=== PATIENT | male | born 1990 | race Native Hawaiian/Other Pacific Islander ===

== ENCOUNTER 2017-08-12 20:29 | Emergency (ER) | payer OTHER ==
[~2017-08-12] VITALS: Ht 172.7 cm; Wt 90.7 kg
== END 2017-08-12 21:38 | disposition home or self-care (01) ==
LOC: ED 20:29
DX: R05 Cough (principal); R51 Headache; R07.89 Other chest pain
CPT/HCPCS: 99281

== ENCOUNTER 2019-08-17 21:59 | Emergency (ER) | payer OTHER ==
[~2019-08-17] VITALS: Ht 172.7 cm; Wt 109.3 kg
[2019-08-17 22:35] LABS: PLATELET COUNT 226 K/uL (142-355)
[2019-08-17 22:45] LABS: POTASSIUM 3.8 mmol/L (3.6-5.2)
[2019-08-17 23:20] VITALS: BP 135/81; TEMP 98.6
== END 2019-08-17 23:22 | disposition home or self-care (01) ==
LOC: ED 21:59
PROVIDERS: Hospitalist
DX: J40 Bronchitis, not specified as acute or chronic (principal); F17.220 Nicotine dependence, chewing tobacco, uncomplicated
CPT/HCPCS: 36415; 80048; 85027; 87502; 87651; 94664; 99283

== ENCOUNTER 2019-10-06 11:40 | Emergency (ER) | payer OTHER ==
[~2019-10-06] VITALS: Ht 172.7 cm; Wt 107.0 kg
[2019-10-06 11:48] VITALS: BP 175/108; TEMP 97.9
== END 2019-10-06 12:43 | disposition home or self-care (01) ==
LOC: ED 11:40
DX: H10.32 Unspecified acute conjunctivitis, left eye (principal)
CPT/HCPCS: 99283

== ENCOUNTER 2020-08-27 11:09 | Emergency (ER) | payer OTHER ==
[~2020-08-27] VITALS: Ht 175.3 cm; Wt 99.8 kg
[2020-08-27 11:37] LABS: PLATELET COUNT 139 K/uL (142-355)
[2020-08-27 11:45] LABS: POTASSIUM 4.1 mmol/L (3.6-5.2)
[2020-08-27 13:20] VITALS: BP 112/70; TEMP 99.5
== END 2020-08-27 13:21 | disposition home or self-care (01) ==
LOC: ED 11:09
PROVIDERS: Family Medicine
DX: J06.9 Acute upper respiratory infection, unspecified (principal); R05 Cough; R73.9 Hyperglycemia, unspecified; E87.1 Hypo-osmolality and hyponatremia; Z20.828 Contact with and (suspected) exposure to other viral communicable diseases
CPT/HCPCS: 80053; 85027; 87502; 87635; 87651; 96372; 99283; J1815; U0003

== ENCOUNTER 2020-10-04 12:33 | Emergency (ER) | payer OTHER ==
[~2020-10-04] VITALS: Ht 175.3 cm; Wt 99.8 kg
[2020-10-04 12:35] VITALS: TEMP 98.1
[2020-10-04 13:16] LABS: PLATELET COUNT 256 K/uL (142-355)
[2020-10-04 13:44] LABS: POTASSIUM 4.1 mmol/L (3.6-5.2)
[2020-10-04 14:35] VITALS: BP 138/72
== END 2020-10-04 14:40 | disposition home or self-care (01) ==
LOC: ED 12:33
PROVIDERS: Emergency Medicine Emergency Medical Services
DX: R11.2 Nausea with vomiting, unspecified (principal)
CPT/HCPCS: 80053; 82948; 83690; 85027; 96360; 96372; 96375; 99284; J1815; J2405

== ENCOUNTER 2020-10-21 15:39 | Emergency (ER) | payer OTHER ==
[~2020-10-21] VITALS: Ht 175.3 cm; Wt 97.5 kg
[2020-10-21 15:44] VITALS: BP 141/91; TEMP 98.1
== END 2020-10-21 16:12 | disposition home or self-care (01) ==
LOC: ED 15:39
PROC: 09C37ZZ Extirpation of Matter from Right External Auditory Canal, Via Natural or Artificial Opening (ICD-10-PCS; principal; 2020-10-21)
DX: T16.1XXA Foreign body in right ear, initial encounter (principal)
CPT/HCPCS: 99283

== ENCOUNTER 2020-10-22 09:29 | Emergency (ER) | payer OTHER ==
[~2020-10-22] VITALS: Ht 175.3 cm; Wt 97.5 kg
[2020-10-22 09:44] VITALS: TEMP 98
[2020-10-22 11:30] VITALS: BP 122/73
== END 2020-10-22 11:30 | disposition home or self-care (01) ==
LOC: ED 09:29
DX: S60.221A Contusion of right hand, initial encounter (principal); W22.09XA Striking against other stationary object, initial encounter; Y92.89 Other specified places as the place of occurrence of the external cause
CPT/HCPCS: 99282

== ENCOUNTER 2021-07-03 15:39 | Emergency (ER) | payer OTHER ==
[~2021-07-03] VITALS: Ht 175.3 cm; Wt 97.5 kg
[2021-07-03 17:07] VITALS: BP 140/98; TEMP 98
== END 2021-07-03 17:13 | disposition home or self-care (01) ==
LOC: ED 15:39
DX: K04.7 Periapical abscess without sinus (principal)
CPT/HCPCS: 99282

== ENCOUNTER 2021-09-15 06:55 | Emergency (ER) | payer OTHER ==
[~2021-09-15] VITALS: Ht 175.3 cm; Wt 97.5 kg
[2021-09-15 07:06] VITALS: BP 136/87; TEMP 97
== END 2021-09-15 07:52 | disposition home or self-care (01) ==
LOC: ED 06:55
DX: S63.8X2A Sprain of other part of left wrist and hand, initial encounter (principal); X50.9XXA Other and unspecified overexertion or strenuous movements or postures, initial encounter; Y92.89 Other specified places as the place of occurrence of the external cause
CPT/HCPCS: 96372; 99283; J1885

== ENCOUNTER 2022-08-29 16:28 | Emergency (ER) | payer OTHER ==
[~2022-08-29] VITALS: Ht 175.3 cm; Wt 102.1 kg
[2022-08-29 16:51] VITALS: BP 155/81; TEMP 100.1
== END 2022-08-29 18:35 | disposition home or self-care (01) ==
LOC: ED 16:28
DX: J10.1 Influenza due to other identified influenza virus with other respiratory manifestations (principal); F17.210 Nicotine dependence, cigarettes, uncomplicated; Z20.822 Contact with and (suspected) exposure to COVID-19
CPT/HCPCS: 87502; 87635; 87651; 96372; 99283; J1885; J2405; U0001

== ENCOUNTER 2023-01-16 23:55 | Emergency (ER) | payer OTHER ==
[~2023-01-16] VITALS: Ht 175.3 cm; Wt 97.5 kg
[2023-01-17 00:23] VITALS: TEMP 97.6
[2023-01-17 02:08] LABS: PLATELET COUNT 221 K/uL (142-355)
[2023-01-17 02:15] LABS: POTASSIUM 4.1 mmol/L (3.6-5.2)
[2023-01-17 04:45] VITALS: BP 148/84
== END 2023-01-17 04:45 | disposition home or self-care (01) ==
LOC: ED 23:55
PROVIDERS: Family Medicine
DX: R10.9 Unspecified abdominal pain (principal); R73.9 Hyperglycemia, unspecified
CPT/HCPCS: 36415; 80053; 81002; 85027; 96374; 96375; 99284; J1815; J1885; J2405; Q9963

== ENCOUNTER 2023-08-31 14:35 | Emergency (ER) | payer BC ==
[~2023-08-31] VITALS: Ht 167.6 cm; Wt 99.8 kg
[2023-08-31 14:44] VITALS: BP 154/75; TEMP 97.9
== END 2023-08-31 15:40 | disposition home or self-care (01) ==
LOC: ED 14:35
DX: M79.642 Pain in left hand (principal); M25.532 Pain in left wrist; S63.92XA Sprain of unspecified part of left wrist and hand, initial encounter; X50.0XXA Overexertion from strenuous movement or load, initial encounter; Y93.89 Activity, other specified; Y92.89 Other specified places as the place of occurrence of the external cause
CPT/HCPCS: 99283